=== PATIENT | male | born 1995 | race Caucasian/White ===

== ENCOUNTER 2016-07-11 20:12 | Emergency (ER) | payer MEDICAID ==
--- NOTE | 2016-07-11 20:55 | ER Document Report ---
ED Medical Screen (RME) - General Chief Complaint: Facial Swelling Stated Complaint: RASH Time seen by provider: 20:51 Mode of Arrival: Ambulatory Information source: Patient Notes: 21-year-old male presents to ED for facial swelling and pain for 2 hours. States he has had "Sharma's palsy this going around to both sides of his face." Patient is symmetrical. Begin freely in full sentences. States he had Sharma's palsy before. States he took naproxen 500 mg 2 hours ago. I have greeted and performed a rapid initial assessment of this patient. A comprehensive ED assessment and evaluation of the patient, analysis of test results and completion of medical decision making process will be conducted by an additional ED providers. TRAVEL OUTSIDE OF THE [place] IN LAST 30 DAYS: No - Related Data Allergies/Adverse Reactions: No Known Allergies Allergy (Unverified 06/25/13 13:00) Past Medical History - Immunizations Hx Diphtheria, Pertussis, Tetanus Vaccination: No Physical Exam - Vital signs Vitals: Temp Pulse Resp BP Pulse Ox 98.1 F 77 17 142/58 H 98 07/11/16 20:39 07/11/16 20:39 07/11/16 20:39 07/11/16 20:39 07/11/16 20:39 Course - Vital Signs Vital signs: Temp Pulse Resp BP Pulse Ox 98.1 F 77 17 142/58 H 98 07/11/16 20:39 07/11/16 20:39 07/11/16 20:39 07/11/16 20:39 07/11/16 20:39
--- NOTE | 2016-07-11 23:49 | ER Document Report ---
[id number] Mode of Arrival: Ambulatory Notes: Patient is a 21-year-old male who presents with complaint of feeling as if his face is swollen on both sides. He feels pressure behind his ears. He also feels numbness in both sides his face. Patient says he thinks his Sharma's palsy. Says he had Sharma's palsy once before. Patient's second complaint is that we will use the bathroom here in the hospital he knows that his urine was orange in color. He also had some burning with urination. No abnormal discharge. This is the first time this has happened. He's never been sexually active and is a virgin. Patient denies any focal weakness or numbness. No recent fevers or infections. Patient has a follow-up appointment with his primary care doctor in the morning. Patient's neighbor is at bedside. She says that she is a very stressed person and does not handle stress well. She says she feels that he may need to start going to professional counseling. Patient also mentions that at times he feels short of breath when he lays down. He says he can hear himself breathe whenever he is lying down. This has been ongoing for a long time. TRAVEL OUTSIDE OF THE [place] IN LAST 30 DAYS: No - Related Data Allergies/Adverse Reactions: No Known Allergies Allergy (Unverified 06/25/13 13:00) Past Medical History - General Information source: Patient - Social History Smoking Status: Never Smoker Frequency of alcohol use: None Drug Abuse: None Family History: None Patient has suicidal ideation: No Patient has homicidal ideation: No Renal/ Medical History: Denies: Hx Peritoneal Dialysis - Immunizations Hx Diphtheria, Pertussis, Tetanus Vaccination: No Review of Systems - Review of Systems Notes: My Normal Review Basic REVIEW OF SYSTEMS: CONSTITUTIONAL : Denies fever, chills, or sweats. Denies recent illness. EENT: Denies eye, ear, throat, or mouth pain or symptoms. Denies nasal or sinus congestion. CARDIOVASCULAR: Denies chest pain. RESPIRATORY: Patient says "Can hear myself breathe when I lay down" GASTROINTESTINAL: Denies abdominal pain. Denies nausea, vomiting, or diarrhea. Denies constipation. Last BM: Urinary: Says his orange is yellow in color. MUSCULOSKELETAL: Denies neck or back pain or joint pain or swelling. SKIN: Denies rash or skin lesions. NEUROLOGICAL: Numb feeling to both sides. PSYCHIATRIC: Anxiety ALL OTHER SYSTEMS REVIEWED AND NEGATIVE. Physical Exam - Vital signs Vitals: Temp Pulse Resp BP Pulse Ox 98.1 F 77 17 142/58 H 98 07/11/16 20:36 07/11/16 20:36 07/11/16 20:36 07/11/16 20:36 07/11/16 20:36 - Notes Notes: General Appearance: Well nourished, alert, cooperative, no acute distress, no obvious discomfort. Vitals: reviewed, See vital signs table. Head: no swelling or tenderness to the head Eyes: PERRL, EOMI, Conjuctiva clear Mouth: No decreasd moisture Throat: No tonsillar inflammation, No airway obstruction, No lymphadenopathy Ears: Normal appearing tympanic membranes. Neck: Supple, no neck tenderness, No thyromegaly Lungs: No wheezing, No rales, No rhonci, No accessory muscle use, good air exchange bilaterally. Heart: Normal rate, Regular rythm, No murmur, no rub Abdomen: Normal BS, soft, No rigidity, No abdominal tenderness, No guarding, no rebound, no abdominal masses, no organomegaly Extremities: strength 5/5 in all extremities, good pulses in all extremities, no swelling or tenderness in the extremities, no edema. Skin: warm, dry, appropriate color, no rash Neuro: speech clear, oriented x 3, normal affect, responds appropriately to questions. Cranial nerves II through XII are completely intact. Distal sensation intact. She moves all extremities without difficulty. Good strength in both upper and lower extremities. No neurologic deficits on exam. No evidence of Sharma's palsy on exam. Course - Vital Signs Vital signs: Temp Pulse Resp BP Pulse Ox 97.9 F 81 14 143/85 H 96 07/12/16 01:11 07/12/16 01:11 07/12/16 01:11 07/12/16 01:11 07/12/16 01:11 - Transfer of Care Notes: 07/12/16 06:53 I'm not finding any abnormalities on the patient's exam. His urinalysis is negative. He looks well. He seems to have a lot of anxiety and his neighbor also confirms that he is very stressed and seems to get worked up over small things. He does have an appointment with his primary care doctor morning. I strongly encouraged him to keep this appointment for evaluation. I think Sharma' s palsy is highly unlikely being that the patient has symptoms bilaterally and seem more consistent paresthesias. There is obviously no weakness or motor function on exam. He can feel me touch his face. At this time I will discharge patient home. I encourage him to return to ER immediately if he has any paralysis of his facial muscles, weakness, fevers, or feels unwell. Patient agrees with plan and will be discharged home. Dictation of this chart was performed using voice recognition software; therefore, there may be some unintended grammatical errors. Discharge - Discharge Clinical Impression: Anxiety, Facial paresthesia Condition: Good Disposition: HOME, SELF-CARE Additional Instructions: Please follow-up with your doctor in the morning as scheduled. Please return to the ER if you have weakness with movement of your face, fevers, or feel unwell. Please talk to your doctor about possible counseling for dealing with stress.
[2016-07-12 00:04] LABS: APPEARANCE,URINE CLEAR; BILIRUBIN,URINE NEGATIVE (NEGATIVE); GLUCOSE, URINE NEGATIVE (NEGATIVE); KETONES,URINE NEGATIVE (NEGATIVE); LEUKOCYTE ESTERASE,URINE NEGATIVE (NEGATIVE); NITRITE,URINE NEGATIVE (NEGATIVE); PROTEIN,URINE NEGATIVE (NEGATIVE); URINE SPECIFIC GRAVITY 1.031; UROBILINOGEN,URINE NEGATIVE mg/dL (<2.0)
[2016-07-12 01:46] VITALS: BP 143/85
== END 2016-07-12 01:11 | disposition home or self-care (01) ==
LOC: ER 20:12
DX: F41.9 Anxiety disorder, unspecified (principal); R20.0 Anesthesia of skin; R22.0 Localized swelling, mass and lump, head
CPT/HCPCS: 81001; 99283

== ENCOUNTER → 2017-01-08 | Outpatient (CLI) | payer MEDICAID ==
[2017-01-08 09:37] LABS: HEMATOCRIT 39.2 % (37.9-51.0); HEMOGLOBIN 13.7 g/dL (13.5-17.0); HGB HCT DIFFERENCE 1.9; MEAN CORPUSCULAR HEMOGLOBIN 31.7 pg (27.0-33.4); MEAN CORPUSCULAR HGB CONC 34.8 g/dL (32.0-36.0); MEAN CORPUSCULAR VOLUME 91 fl (80-97); RED CELL DISTRIBUTION WIDTH 12.9 % (11.5-14.0); WHITE BLOOD COUNT 7.8 10^3/uL (4.0-10.5)
[2017-01-08 10:00] LABS: ALANINE AMINOTRANSFERASE 35 U/L (21-72); ALBUMIN 3.8 g/dL (3.5-5.0); ALKALINE PHOSPHATASE 91 U/L (38-126); ANION GAP 10 (5-19); ASPARTATE AMINO TRANSFERASE 12 U/L (17-59); BILIRUBIN,DIRECT 0.3 mg/dL (0.0-0.4); BILIRUBIN,TOTAL 0.6 mg/dL (0.2-1.3); BLOOD UREA NITROGEN 10 mg/dL (7-20); CALCIUM 8.8 mg/dL (8.4-10.2); CARBON DIOXIDE 26 mmol/L (22-30); CHLORIDE 104 mmol/L (98-107); CHOLESTEROL 116.59 mg/dL (0-200); CREATININE RESULT 0.81 mg/dL (0.52-1.25); Direct HDL 24 mg/dL (>40); GLUCOSE 89 mg/dL (75-110); POTASSIUM 3.8 mmol/L (3.6-5.0); SODIUM 140.4 mmol/L (137-145); TOTAL PROTEIN 6.7 g/dL (6.3-8.2); TRIGLYCERIDES 81 mg/dL (<150)
[2017-01-08 10:11] LABS: DIRECT LDL 84 mg/dL (<100)
[2017-01-08 10:28] LABS: THYROID STIMULATING HORMONE 9.07 uIU/mL (0.47-4.68)
--- NOTE | 2017-01-08 13:59 | EKG REPORT ---
SEVERITY:- NORMAL ECG - SINUS RHYTHM : Confirmed by: Maria Antonia Alfaro MD 08-Jan-2017 13:59:14
== END ==
LOC: OD 08:04
DX: F31.5 Bipolar disorder, current episode depressed, severe, with psychotic features (principal)
CPT/HCPCS: 36415; 80048; 80061; 80076; 83036; 84439; 84443; 85027; 93005; 93010

== ENCOUNTER 2019-12-24 19:29 | Emergency (ER) | payer MEDICARE, MEDICAID ==
[2019-12-24 19:48] VITALS: BP 145/64
[2019-12-24] MEDS ORDERED: HYDROCODONE/ACETAMINOPHEN 5-325 MG TABLET PO ONE (21:35)
--- NOTE | 2019-12-24 21:36 | ER Document Report ---
ED Medical Screen (RME) - General Chief Complaint: Back Pain Stated Complaint: BACK PAIN Time Seen by Provider: 12/24/19 21:26 Primary Care Provider: ANN ASHTON MD [Primary Care Provider] - Follow up as needed Notes: Patient presents complaining of low back pain for the past year. Patient complains of numbness to bilateral hands and into the legs. Patient states his urine is orange in color. Patient denies any injury or fever. Feels like his pain is worsening today which prompted his visit. I have greeted and performed a rapid initial assessment of this patient. A comprehensive ED assessment and evaluation of the patient, analysis of test results and completion of the medical decision making process will be conducted by additional ED providers. TRAVEL OUTSIDE OF THE [place] IN LAST 30 DAYS: No - Related Data Allergies/Adverse Reactions: No Known Allergies Allergy (Unverified 06/25/13 13:00) Past Medical History - Social History Chew tobacco use (# tins/day): No Frequency of alcohol use: None Drug Abuse: None Renal/ Medical History: Denies: Hx Peritoneal Dialysis - Immunizations Hx Diphtheria, Pertussis, Tetanus Vaccination: No Physical Exam - Vital signs Vitals: Temp Pulse Resp BP Pulse Ox 98.9 F 72 19 145/64 H 98 12/24/19 19:47 12/24/19 19:47 12/24/19 19:47 12/24/19 19:47 12/24/19 19:47 - General Notes: Morbidly obese, lower lumbar tenderness, normal strength bilateral upper and lower extremities Course - Vital Signs Vital signs: Temp Pulse Resp BP Pulse Ox 98.9 F 72 19 145/64 H 98 12/24/19 19:47 12/24/19 19:47 12/24/19 19:47 12/24/19 19:47 12/24/19 19:47 Doctor's Discharge - Discharge Referrals: ANN ASHTON MD [Primary Care Provider] - Follow up as needed
--- NOTE | 2019-12-24 22:41 | RADIOLOGY REPORT (SQ) ---
EXAM DESCRIPTION: X-ray, four views of the lumbar spine CLINICAL HISTORY: 24 years Male, back pain COMPARISON: None. FINDINGS: Five nonrib-bearing lumbar vertebral bodies are identified. Alignment is anatomic. Vertebral body heights and disc spaces are preserved. No fracture. Oblique views demonstrate no lysis. Sacrum and SI joints appear normal. IMPRESSION: No acute process
== END 2019-12-24 23:56 | disposition left against medical advice (07) ==
LOC: ER 19:29
DX: Z53.20 Procedure and treatment not carried out because of patient's decision for unspecified reasons (principal); M54.9 Dorsalgia, unspecified; M54.5 Low back pain; R20.0 Anesthesia of skin
CPT/HCPCS: 99281; 72110; A9270